=== PATIENT | male | born 1960 | race Caucasian/White ===

== ENCOUNTER 2018-11-17 12:30 | Day surgery (SDC) | payer OTHER ==
[~2018-11-17] VITALS: Ht 185.4 cm; Wt 131.8 kg
[~2018-11-17 12:30] MED LIST: AMLO-147 PO; ASPI-903 PO; ATOR10TA65 PO; BENA40TA56 PO; GLIP5TAB13 PO; HYDR25TA6 PO; SULFAMETHOXAZOLE-TMP PO
[2018-11-17 14:09] VITALS: Ht 185.4 cm; Wt 131.8 kg
--- NOTE | 2018-11-17 14:18 | PREAC ---
Date/Time of Note Date/Time of Note DATE: 11/17/18 TIME: 14:16 Anesthesia Eval and Record Evaluation Time Pre-Procedure Interview DATE: 11/17/18 TIME: 14:16 Age 58 Sex male NPO: 8 hrs Preoperative diagnosis screening for colon cancer Planned procedure colonoscopy Past Medical History Past Medical History: Includes Cardio: HTN Endo: Diabetes (on PO meds only for DM) Renal: CKD GI: Obesity Surgery & Anesthesia Issues No known issue Meds Anticoagulation: Yes (asa 81 mg 10 days ago) Beta Samson within 24 hr: No Reason Beta Samson not given: Pt. not on B-Samson Reported Medications [Sulfamethoxazole-Tmp] No Conflict Check, 800 MG PO BID, #28 12/11/15 Aspirin* (Aspirin* Chew) 81 Mg Tab.chew, 81 MG PO DAILY, TAB.CHEW 12/11/15 Amlodipine Besylate* (Amlodipine Besylate*) 10 Mg Tablet, 10 MG PO DAILY, #30 TAB 12/11/15 Hydrochlorothiazide* (Hydrochlorothiazide*) 25 Mg Tab, 25 MG PO DAILY, #30 TAB 12/11/15 Benazepril Hcl* (Benazepril Hcl*) 40 Mg Tablet, 40 MG PO DAILY, #30 TAB 12/11/15 Atorvastatin Calcium (Atorvastatin Calcium) 10 Mg Tablet, 10 MG PO QHS, #30 TAB 12/11/15 Glipizide* (Glipizide*) 5 Mg Tablet, 5 MG PO BID, TAB 12/11/15 Meds reviewed: Yes Allergies Coded Allergies: No Known Allergy (Unverified , 11/17/18) Allergies Reviewed: Yes Labs/Studies Labs Reviewed: Other (n/a) test: N/A Pre-procedure Exam Airway: Adequate mouth opening, Adequate thyromental dist Mallampati: Mallampati II Teeth: Normal Lung: Normal Heart: Normal ASA Physical Status ASA physical status: 3 Emergency: None Planned Anesthetic General/MAC: MAC Planned Pain Management Parenteral pain med Pre-operative Attestations Prior to commencing anesthesia and surgery, the patient was re-evaluated, there was verification of: *The patient's identity *The results of appropriate recent lab work and preoperative vital signs *The above evaluation not changing prior to induction *Anesthetic plan, risk benefits, alternative and complications discussed with patient/family; questions answered; patient/family understands, accepts and wishes to proceed. SALAPATE,TOM November 17, 2018 14:18
[2018-11-17] MEDS ORDERED: IRON DAILY (14:19)
[2018-11-17] MEDS ORDERED: FOLIC ACID DAILY (14:19)
[2018-11-17] MEDS ORDERED: ALLO100T PO (14:19)
[2018-11-17] MEDS ORDERED: DULA0.75 SQ (14:19)
[2018-11-17] MEDS ORDERED: FURO40TA4 PO (14:19)
[2018-11-17] MEDS ORDERED: PROPOFOL 20 ML ONE ×2 (14:21→14:53)
[2018-11-17 14:26] VITALS: BP 140/80; PULSE 41; RESP 13
[2018-11-17] MEDS ORDERED: FENTAnyl 50 MCG/ML VIAL ONE (14:30)
[2018-11-17 15:24] VITALS: BP 144/70; PULSE 84; RESP 14
--- NOTE | 2018-11-17 16:49 | PAC ---
Date/Time of Note Date/Time of Note DATE: 11/17/18 TIME: 16:49 Post-Anesthesia Notes Post-Anesthesia Note Last documented vital signs Vital Signs Date Temp Pulse Resp B/P (MAP) Pulse Ox O2 O2 Flow FiO2 Time Delivery Rate 11/17/18 98.6 84 14 144/70 99 Room Air 15:24 (94) 11/17/18 96.6 14:26 Activity: WNL Respiratory function: WNL Cardiovascular function: WNL Mental status: Baseline Pain reasonably controlled: Yes Hydration appropriate: Yes Nausea/Vomiting absent: No TODD MCGUIRE MD November 17, 2018 16:49
== END 2018-11-17 15:17 | disposition home or self-care (01) ==
LOC: GIL 12:30
PROVIDERS: ATTEND Internal Medicine Gastroenterology
DX: Z12.11 Encounter for screening for malignant neoplasm of colon (principal); D12.5 Benign neoplasm of sigmoid colon; D12.3 Benign neoplasm of transverse colon; K64.8 Other hemorrhoids; E11.9 Type 2 diabetes mellitus without complications; I12.9 Hypertensive chronic kidney disease with stage 1 through stage 4 chronic kidney disease, or unspecified chronic kidney disease; N18.9 Chronic kidney disease, unspecified; Z79.82 Long term (current) use of aspirin
CPT/HCPCS: 45380; 45385; 82962; 88305; J3010; Z7610